=== PATIENT | male | born 1955 | race Caucasian/White ===

== ENCOUNTER 2016-04-15 13:54 | Emergency (ER) | payer MEDICARE, OTHER ==
[2016-04-15] MEDS ORDERED: NS 0.9% 1000 ML* 1,000 ML IV ONE (15:02)
[2016-04-15] MEDS ORDERED: Ketorolac INJ* 30 MG/ML 1 ML VIAL IV ONE (15:02)
[2016-04-15 15:21] LABS: Hematocrit 48 % (42-52); Hemoglobin 15.9 g/dl (14.0-18.0); Mean Corpuscular HGB Conc 33 g/dl (31-36); Mean Corpuscular Hemoglobin 30 pg (27-31); Mean Corpuscular Volume 89 fL (80-94); Mean Platelet Volume 9 um3 (7.4-10.4); Red Blood Count 5.35 10^6/ul (4.0-5.4); Red Cell Distribution Width 13 % (10.5-15); White Blood Count 14.8 10^3/ul (3.5-10.8)
[2016-04-15 15:24] LABS: Urine Bacteria Absent (Absent); Urine Bilirubin Negative (Negative); Urine Glucose Negative (Negative); Urine Nitrite Negative (Negative)
[2016-04-15 15:32] LABS: Albumin 4.4 g/dL (3.2-5.2); C Reactive Protein 1.85 mg/L (< 5.00); Calcium 11.3 mg/dL (8.6-10.3); EGFR African American 83.7 (>60); EGFR Non-African American 65.1 (>60); Globulin 3.1 g/dL (2-4); Potassium 3.3 mmol/L (3.5-5.0); Total Bilirubin 0.5 mg/dL (0.2-1.0); Total Protein 7.5 g/dL (6.4-8.9)
--- NOTE | 2016-04-15 15:39 | RAD ---
CLINICAL HISTORY: Right flank pain COMPARISON: None TECHNIQUE: Multiple contiguous axial CT scans were obtained of the abdomen and pelvis, without intravenous contrast enhancement. Coronal and sagittal multiplanar reformations are submitted for review. Oral contrast was not administered. FINDINGS: The study is limited by the lack of intravenous contrast. This limits evaluation of the solid organs and vasculature. LUNG BASES: There is dependent atelectasis of the right lung base LIVER: The liver is diffusely low in attenuation compared to the spleen. There are no focal hepatic parenchymal masses. The liver measures 21 cm in long axis. BILE DUCTS: There is no intrahepatic or extrahepatic biliary dilatation. GALLBLADDER: The gallbladder is incompletely distended and is not well evaluated. PANCREAS: The pancreas is normal, without mass or ductal dilatation. SPLEEN: Normal in size and appearance. UPPER GI TRACT: Evaluation of the gastrointestinal tract is limited by incomplete gastric distention. The upper GI tract is unremarkable. SMALL BOWEL AND MESENTERY: The small bowel is normal in contour, course, and caliber. There is no obstruction or dilatation. COLON: The colon is normal in contour, course, caliber. There is no pericolonic inflammatory change. There is a tubular, vermiform, hollow viscus that is blind ending, and originates from the cecum, consistent with a normal appendix. There is no periappendiceal inflammatory change. This is best seen on axial images 101 through 112. ADRENALS: Normal bilaterally. KIDNEYS: There are multiple renal calyceal stones bilaterally, measuring up to 0.8 cm. There is mild pelvocaliectasis and moderate hydroureter on the right, with a 0.5 cm right UVJ stone. BLADDER: The bladder is incompletely distended but is grossly normal. PELVIC ORGANS: The prostate gland is normal. The seminal vesicles are symmetric. A left hydrocele is visible. AORTA: There is calcific atherosclerotic disease of the abdominal aorta and its branches, without aneurysmal dilatation IVC: Unremarkable LYMPH NODES: There is no lymphadenopathy by size criteria. ABDOMINAL WALL: There is no evidence for abdominal wall hernia. BONES AND SOFT TISSUES: Degenerative changes are noted of the spine OTHER: None IMPRESSION: 1. BILATERAL NEPHROLITHIASIS INCLUDING A 0.5 CM RIGHT UVJ STONE WITH RIGHT-SIDED HYDRONEPHROSIS. 2. HEPATOMEGALY WITH FATTY INFILTRATION OF THE LIVER. 3. LEFT HYDROCELE
[2016-04-15] MEDS ORDERED: Tamsulosin CAP* 0.4 MG PO ONE (17:00)
--- NOTE | 2016-04-15 17:03 | ED ---
Stefan Arceo Billy, scribed for Yoel Morales MD on 04/15/16 at 1501 . GI/ HPI - HPI Summary HPI Summary: Patient is a 60 year-old male coming to [facility] presenting with sudden onset of constant right-sided flank pain since this morning, shortly after waking up. The pain has gradually worsened with time. Severity 7/10 at this point in the ED , but it was worse this morning. He reports nausea without vomiting or diarrhea. Denies urinary symptoms. Prior history of kidney stone 8 years ago, and he states his current complaint feels very similar to the previous episode. - History of Current Complaint Chief Complaint: EDFlankPain Time Seen by Provider: 04/15/16 14:58 Stated Complaint: FLANK PAIN Hx Obtained From: Patient Onset/Duration: Started Hours Ago, Still Present Timing: Constant Current Severity: Moderate Pain Intensity: 7 Location of Pain: Flank Associated Signs and Symptoms: Positive: Nausea. Negative: Vomiting, Diarrhea, Dysuria - Allergy/Home Medications Allergies/Adverse Reactions: Allergies Allergy/AdvReac Type Severity Reaction Status Date / Time Fentanyl AdvReac Severe Headache Verified 02/29/16 11:35 PMH/Surg Hx/FS Hx/Imm Hx Endocrine/Hematology History: Reports: Hx Thyroid Disease Cardiovascular History: Reports: Hx Hypertension, Other Cardiovascular Problems/ Disorders - Atrial Fib History: Reports: Hx Kidney Stones Musculoskeletal History: Reports: Other Musculoskeletal History - Chronic Neck and Leg Pain - Surgical History Surgery Procedure, Year, and Place: C6-7 Fusion. Thyroplasty. November 2011 DCS Trial Infectious Disease History: No Infectious Disease History: Denies: Traveled Outside the [place] in Last 30 Days - Family History Known Family History: Positive: Other - Prostate cancer - Social History Alcohol Use: None Substance Use Type: Reports: None Substance Use Comment - Amount & Last Used: Dilaudid Smoking Status (MU): Former Smoker Type: Cigarettes Have You Smoked in the Last Year: No Review of Systems Positive: Nausea. Negative: Vomiting, Diarrhea Positive: flank pain. Negative: dysuria All Other Systems Reviewed And Are Negative: Yes Physical Exam - Summary Physical Exam Summary: VITAL SIGNS: Reviewed. GENERAL: Patient is a well developed and nourished male with mild distress secondary to pain . Patient is not in any acute respiratory distress. HEAD AND FACE: Normocephalic and atraumatic. EYES: PERRLA, EOMI x 2, No injected conjunctiva. EARS: Hearing grossly intact. Ear canals and tympanic membranes are WNL. MOUTH: Oropharynx within normal limits. NECK: Supple, trachea is midline, no adenopathy, no JVD. CHEST: Symmetric, no tenderness at palpation LUNGS: Clear to auscultation bilaterally. No wheezing or crackles. CVS: RRR,, S1 and S2 present, no murmurs or gallops appreciated. ABDOMEN: Soft, non-tender. No signs of distention. Positive bowel sounds. No rebound no guarding, and no masses palpated. No abdominal bruit or pulsations. Positive right CVAT's EXTREMITIES: FROM in all major joints, no edema, no cyanosis or clubbing. NEURO: Alert and oriented x 3. No acute neurological deficits. Speech is normal. SKIN: Dry and warm Triage Information Reviewed: Yes Vital Signs On Initial Exam: Initial Vitals Temp Pulse Resp BP Pulse Ox 96.9 F 68 16 179/90 100 04/15/16 13:55 04/15/16 13:55 04/15/16 13:55 04/15/16 13:55 04/15/16 13:55 Vital Signs Reviewed: Yes Diagnostics - Vital Signs Vital Signs Temp Pulse Resp BP Pulse Ox 04/15/16 13:55 96.9 F 68 16 179/90 100 - Laboratory Lab Results: Lab Results 04/15/16 04/15/16 04/15/16 Range/Units 15:06 15:06 15:06 WBC 14.8 H (3.5-10.8) 10^3/ul RBC 5.35 (4.0-5.4) 10^6/ul Hgb 15.9 (14.0-18.0) g/dl Hct 48 (42-52) % MCV 89 (80-94) fL MCH 30 (27-31) pg MCHC 33 (31-36) g/dl RDW 13 (10.5-15) % Plt Count 290 (150-450) 10^3/ul MPV 9 (7.4-10.4) um3 Neut % (Auto) 85.1 H (38-83) % Lymph % (Auto) 9.7 L (25-47) % Redwood % (Auto) 4.2 (1-9) % Eos % (Auto) 0.7 (0-6) % Baso % (Auto) 0.3 (0-2) % Absolute Neuts (auto) 12.6 H (1.5-7.7) 10^3/ul Absolute Lymphs (auto) 1.4 (1.0-4.8) 10^3/ul Absolute Monos (auto) 0.6 (0-0.8) 10^3/ul Absolute Eos (auto) 0.1 (0-0.6) 10^3/ul Absolute Basos (auto) 0 (0-0.2) 10^3/ul Absolute Nucleated RBC 0.01 10^3/ul Nucleated RBC % 0 Sodium 137 (133-145) mmol/L Potassium 3.3 L (3.5-5.0) mmol/L Chloride 105 (101-111) mmol/L Carbon Dioxide 26 (22-32) mmol/L Anion Gap 6 (2-11) mmol/L BUN 23 (6-24) mg/dL Creatinine 1.15 (0.67-1.17) mg/dL Est GFR ( Amer) 83.7 (>60) Est GFR (Non-Af Amer) 65.1 (>60) BUN/Creatinine Ratio 20.0 (8-20) Glucose 161 H (70-100) mg/dL Calcium 11.3 H (8.6-10.3) mg/dL Total Bilirubin 0.50 (0.2-1.0) mg/dL AST 18 (13-39) U/L ALT 26 (7-52) U/L Alkaline Phosphatase 66 (34-104) U/L C-Reactive Protein 1.85 (< 5.00) mg/L Total Protein 7.5 (6.4-8.9) g/dL Albumin 4.4 (3.2-5.2) g/dL Globulin 3.1 (2-4) g/dL Albumin/Globulin Ratio 1.4 (1-3) Amylase 46 (29-103) U/L Lipase 25 (11.0-82.0) U/L Urine Color Yellow Urine Appearance Clear Urine pH 5.0 (5-9) Ur Specific Elmer 1.015 (1.010-1.030) Urine Protein Negative (Negative) Urine Ketones Negative (Negative) Urine Blood 3+ H (Negative) Urine Nitrate Negative (Negative) Urine Bilirubin Negative (Negative) Urine Urobilinogen Negative (Negative) Ur Leukocyte Esterase Negative (Negative) Urine WBC (Auto) Absent (Absent) Urine RBC (Auto) 3+(>10/hpf) H (Absent) Urine Bacteria Absent (Absent) Urine Glucose Negative (Negative) Urine Ascorbic Acid * H (Negative) Result Diagrams: 04/15/16 15:06 04/15/16 15:06 Lab Statement: Any lab studies that have been ordered have been reviewed, and results considered in the medical decision making process. - CT abd/pel w/o CT Interpretation Completed By: Radiologist - 1. BILATERAL NEPHROLITHIASIS INCLUDING A 0.5 CM RIGHT UVJ STONE WITH RIGHT-SIDED HYDRONEPHROSIS. 2. HEPATOMEGALY WITH FATTY INFILTRATION OF THE LIVER. 3. LEFT HYDROCELE Re-Evaluation - Re-Evaluation First Eval Re-Evaluation Time: 16:59 Change: Improved Comment: Labs and imaging reviewed and discussed. GIGU Course/Dx - Course Assessment/Plan: Patient is a 60 year-old male coming to [facility] presenting with sudden onset of constant right-sided flank pain since this morning, shortly after waking up. The pain has gradually worsened with time. Severity 7/10 at this point in the ED, but it was worse this morning. He reports nausea without vomiting or diarrhea. Denies urinary symptoms. Prior history of kidney stone 8 years ago, and he states his current complaint feels very similar to the previous episode. Test results show bloodwork WNL except for increased WBC of 14.8, potassium of 3.3, calcium of 11.3. UA shows 3+ blood. CT abd/pel shows a 0.5 cm right UVJ stone with a right-sided hydronephrosis. The rest of the reading as noted above in the report. In the ED course he was given IV fluids and Toradol for the pain. He was given Flomax. I did not start antibiotics as urine is clean, and he has no fevers or chills. After medications all symptoms resolved. I discussed all the findings and test results with the patient and patient. Patient was instructed to return to the emergency room immediately if any of the symptoms return or worsens. They understand and agree. They were explained the possibility of an early abdominal pathology which was not detected at this time despite the physical exam and testing. They understand and agree. Abdominal exam before discharge: Soft,NT. No signs of distention. BS present. No rebound no guarding, and no masses palpated. Patient is alert and oriented. Patient is hemodynamically stable. Patient is to follow up with primary care physician in the next 24 hours. Patient and patients parents agree and understands. - Diagnoses Differential Diagnoses - Male: Diverticulitis, Appendicitis, Cholelithiasis, Colitis, Renal Calculi, Renal Colic Provider Diagnoses: Renal colic, Ureterolithiasis Discharge - Discharge Plan Condition: Stable Disposition: HOME Prescriptions: Tamsulosin CAP* [Flomax CAP*] 0.4 mg PO BEDTIME #15 cap The documentation as recorded by the Stefan ryan Billy accurately reflects the service I personally performed and the decisions made by , Yoel Morales MD.
[2016-04-15 17:17] VITALS: BP 118/78
== END 2016-04-15 17:14 | disposition home or self-care (01) ==
LOC: ED 13:54
DX: N23 Unspecified renal colic (principal); N20.1 Calculus of ureter; R11.0 Nausea; R10.9 Unspecified abdominal pain; Z87.891 Personal history of nicotine dependence
CPT/HCPCS: 36415; 74176; 80053; 81003; 81015; 82150; 83690; 85025; 86140; 96361; 96374; 99282; J1885